=== PATIENT | male | born 1980 | race Caucasian/White ===

== ENCOUNTER 2017-01-04 10:24 | Emergency (ER) | payer OTHER ==
--- NOTE | 2017-01-04 10:32 | EDPHY ---
H & P Time Seen by Provider: 01/04/17 10:31 HPI/ROS: Chief Complaint: Right middle finger laceration HPI: The patient presents to the ED with a laceration to his right middle finger. The patient cut himself while working. The patient denies any numbness or weakness. He reports his tetanus shot is up-to-date. It occurred while at work. REVIEW OF SYSTEMS: Neuro: no headache, numbness, weakness Musculoskeletal: as above Skin: As above Source: Patient Exam Limitations: No limitations - Medical/Surgical History Other PMH: Past medical history: Noncontributory - Physical Exam Exam: General: Acute distress Left hand: 1.5 cm laceration noted to the radial aspect of the left middle distal phalanx. No evidence of a deep tendon injury appreciated. Normal FDP/ FDS function. Neuro: Sensation intact to light touch in 2 point discrimination throughout the left hand Musculoskeletal: Normal range of motion appreciated in the left hand Constitutional: Initial Vital Signs Temperature (C) 36.6 C 01/04/17 10:37 Heart Rate 77 01/04/17 10:37 Respiratory Rate 18 01/04/17 10:37 Blood Pressure 162/88 H 01/04/17 10:37 O2 Sat (%) 97 01/04/17 10:37 O2 Delivery Mode Room Air Home Medications: Medication Instructions Recorded Lisinopril 01/04/17 Simvastatin 01/04/17 Medical Decision Making Procedures: Procedure: Laceration repair. Verbal consent was obtained from the patient. The 1.5 cm laceration on the left middle finger was anesthetized using lidocaine. The wound was irrigated per protocol, draped and explored to its base with a gloved finger. There were no deep structures involved. No tendon injury was identified. The wound was repaired with 5-0 Prolene sutures x4. The wound repair was simple. The procedure was performed by myself. ED Course/Re-evaluation: The patient presents to the ED with a laceration to his left middle finger which was repaired with 4 sutures in the emergency department. The patient is noted to be neurologically intact. His tetanus shot is up-to-date. The patient will be discharged home with customary aftercare instructions and return precautions. Plan will be for suture removal in 12 days. Departure - Departure Disposition: Home, Routine, Self-Care Clinical Impression: Laceration of left middle finger Condition: Good Instructions: Finger Laceration (ED) Additional Instructions: 1. Return to the emergency department for any increasing pain, redness, swelling or fever. 2. Please return to the ED in 12 days for suture removal. 3. Suture care as directed. Please apply antibiotic ointment to sutures twice daily. Please keep sutures clean and dry.
[2017-01-04 10:39] VITALS: BP 162/88; PULSE 77; RESP 18; TEMP 98; O2SAT 97
== END 2017-01-04 11:19 | disposition home or self-care (01) ==
LOC: CED 10:24
PROC: 0HQGXZZ Repair Left Hand Skin, External Approach (ICD-10-PCS; principal; 2017-01-04)
DX: S61.213A Laceration without foreign body of left middle finger without damage to nail, initial encounter (principal); W27.8XXA Contact with other nonpowered hand tool, initial encounter; Y92.69 Other specified industrial and construction area as the place of occurrence of the external cause; Y99.0 Civilian activity done for income or pay; Y93.89 Activity, other specified